=== PATIENT | male | born 2000 | race Two or more races ===

== ENCOUNTER 2023-06-13 11:41 | Emergency (ER) | payer MEDICAID, OTHER ==
[~2023-06-13] VITALS: Ht 175.3 cm; Wt 97.0 kg
[2023-06-13 13:21] VITALS: BP 147/78; PULSE 95; RESP 16; O2SAT 99
[2023-06-13] MEDS ORDERED: DOXY-447 PO (13:30)
[2023-06-13] MEDS ORDERED: KETO2CRE4 TOP (13:30)
[2023-06-16 22:07] LABS: Chlamydia Trachomatis, NAA Negative (Negative); Neisseria gonorrhoeae, NAA Negative (Negative)
== END 2023-06-13 13:44 | disposition home or self-care (01) ==
LOC: ER 11:41
DX: S30.812A Abrasion of penis, initial encounter (principal); A64 Unspecified sexually transmitted disease; N48.1 Balanitis; X58.XXXA Exposure to other specified factors, initial encounter; Y93.89 Activity, other specified; Y92.89 Other specified places as the place of occurrence of the external cause; Y99.8 Other external cause status